=== PATIENT | female | born 1945 | race Caucasian/White ===

== ENCOUNTER 2021-01-12 16:58 | Emergency (ER) | payer MEDICARE ==
[~2021-01-12] VITALS: Ht 154.9 cm; Wt 99.8 kg
[2021-01-12 17:52] LABS: BASOPHILS # (AUTO) 0.1 (0.0-0.1); BASOPHILS % 0.8 % (0.0-1.0); EOSINOPHILS # (AUTO) 0.1 (0.0-0.4); EOSINOPHILS % 1.1 % (0.0-6.0); HEMATOCRIT 41.5 % (34.2-44.1); LYMPHOCYTES # (AUTO) 1.7 (1.0-3.2); LYMPHOCYTES % 22.8 % (18.0-39.1); MEAN CORPUSCULAR HEMOGLOBIN 28.3 pg (28-32); MEAN CORPUSCULAR HGB CONC 31.3 g/dL (31-35); MEAN CORPUSCULAR VOLUME 90.2 fL (81-99); MONOCYTES # (AUTO) 0.5 (0.2-0.8); MONOCYTES % 6.7 % (4.4-11.3); NEUTROPHILS % 68.2 % (38.7-80.0); PLATELET COUNT 472 x10e3/uL (140-360); RED CELL DISTRIBUTION WIDTH 14.6 % (11.7-14.4)
[2021-01-12 18:22] LABS: ALBUMIN 3.8 g/dL (3.5-5.0); ALBUMIN/GLOBULIN RATIO 0.9 (0.8-2.0); ANION GAP 18.8 mmol/L (8-16); CALCIUM 9.1 mg/dL (8.4-10.2); CREATININE, SERUM 0.72 mg/dL (0.57-1.11); POTASSIUM 4.8 mmol/L (3.5-5.1)
[2021-01-12] MEDS ORDERED: COLACE100 MG PO (20:52)
[2021-01-12] MEDS ORDERED: ONDANSETRON ODT4 MG PO (20:56)
[2021-01-12] MEDS ORDERED: METRONIDAZOLE500 MG PO (20:56)
== END 2021-01-12 21:39 | disposition home or self-care (01) ==
LOC: ER 17:09
DX: K56.41 Fecal impaction (principal); K57.32 Diverticulitis of large intestine without perforation or abscess without bleeding; R91.8 Other nonspecific abnormal finding of lung field
CPT/HCPCS: 36415; 74177; 80053; 85025; 86850; 86900; 99284

== ENCOUNTER 2021-01-30 15:44 | Emergency (ER) | payer MEDICARE ==
[~2021-01-30] VITALS: Ht 154.9 cm; Wt 99.8 kg
[~2021-01-30 15:44] MED LIST: COLACE100 MG PO; METRONIDAZOLE500 MG PO; ONDANSETRON ODT4 MG PO
[2021-01-30] MEDS ORDERED: LISINOPRIL 10 MG TAB PO ONE (16:15)
== END 2021-01-30 18:12 | disposition home or self-care (01) ==
LOC: ER 17:31
DX: M79.672 Pain in left foot (principal); M25.462 Effusion, left knee
CPT/HCPCS: 93971; 99283